=== PATIENT | female | born 1935 | race Caucasian/White ===

== ENCOUNTER 2016-06-06 07:39 | Emergency (ER) | payer MEDICARE, OTHER, MEDICAID ==
[2016-06-06 08:02] VITALS: BP 153/89
[2016-06-06] MEDS ORDERED: HYDROmorphone 0.5 MG/0.5 ML Syringe IM ONE ×2 (08:14→09:28)
--- NOTE | 2016-06-06 08:22 | EDM.PDOC ---
ED HPI Trauma - General Chief Complaint: Lower Extremity Injury/Pain Stated Complaint: RT KNEE PAIN Time Seen by Provider: 06/06/16 08:17 Source: Reports: Patient, Family History Limitations: Reports: No limitations - History of Present Illness INITIAL COMMENTS - FREE TEXT/NARRATIVE: Over the past 3 days she has developed marked swelling in the rt knee. She had alot of trouble getting out of bed. She is habing difficulty walking on the knee. Occurred When: last week Occurred Where: home Method of Injury: other (no known injury. ) Severity: moderate Pain/Injury Location: Reports: lower extremity, right Consciousness: Reports: no loss of consciousness Associated Symptoms: Reports: denies other symptoms Allergies/ADRs: Allergies No Known Allergies Allergy (Verified 06/06/16 07:51) Home Medications: Ambulatory Orders ALPRAZolam [Alprazolam] 06/06/16 Pantoprazole [Protonix] 06/06/16 Potassium Chloride 06/06/16 Past Medical History Musculoskeletal History: Reports: Osteoarthritis, Osteoporosis - Past Surgical History GI Surgical History: Reports: Small bowel Musculoskeletal Surgical History: Reports: Knee replacement, Shoulder surgery Social & Family History - Tobacco Use Smoking Status *Q: Never Smoker Review of Systems - Review of Systems Review Of Systems: See Below Constitutional: Reports: no symptoms Eyes: Reports: no symptoms Ears: Reports: no symptoms Nose: Reports: no symptoms Mouth/Throat: Reports: no symptoms Respiratory: Reports: no symptoms Cardiovascular: Reports: no symptoms GI/Abdominal: Reports: No symptoms Genitourinary: Reports: no symptoms Musculoskeletal: Reports: other (pain in rt knee. ) Skin: Reports: no symptoms Neurological: Reports: no symptoms Trauma Exam - Physical Exam Exam: See Below Text/Narrative:: Pt arrived with pain oin the rt knee with considerable swelling. She did not fall or injure the knee. d Exam Limited By: No limitations General Appearance: Reports: alert, moderate distress Head: Reports: atraumatic Eyes: bilateral eye: EOMI, normal inspection, PERRL Ears: Reports: normal TMs Nose: Reports: normal inspection Throat/Mouth: Reports: Normal inspection Neck: Reports: non-tender Respiratory Exam: Reports: no respiratory distress Cardiovascular: Reports: regular rate, rhythm Extremities: Reports: other ( rt knee is swollen ans painful. Pt has fluid in the joint. She is having alot of difficulty bending and extending the knee. ) Course - Vital Signs Last Recorded V/S: Last Vital Signs Temp 36.3 C 06/06/16 08:01 Pulse 92 06/06/16 08:01 Resp 14 06/06/16 08:01 BP 153/89 H 06/06/16 08:01 Pulse Ox 95 06/06/16 08:01 - Orders/Labs/Meds Orders: Active Orders 24 hr Category Date Time Status Knee Min 4V Rt [CR] Stat Exams 06/06/16 08:15 Taken CULTURE BODY FLUID + SMEAR [RM] Stat Lab 06/06/16 09:43 Results Labs: Laboratory Tests 06/06/16 Range/Units 09:43 Fluid Type Synovial fluid Fluid WBC 58701 /ul Fluid RBC 924328 /ul Fluid Diff Comment Fluid Mononuclear Cell 5 % Fl Polymorphonucl Cell 95 % Meds: Medications Discontinued Medications Generic Name Dose Route Start Last Admin Trade Name Freq PRN Reason Stop Dose Admin Acetaminophen/Hydrocodone Bitart 1 tab 06/06/16 09:46 06/06/16 10:57 [place] 325-5 Mg PO 06/06/16 09:47 1 tab ONETIME ONE Administration Hydromorphone HCl 0.5 mg 06/06/16 08:14 06/06/16 08:19 Dilaudid IM 06/06/16 08:15 0.5 mg ONETIME ONE Administration Hydromorphone HCl 0.5 mg 06/06/16 09:28 Dilaudid IM 06/06/16 09:29 ONETIME ONE Lidocaine HCl 20 ml 06/06/16 08:52 06/06/16 09:27 Xylocaine 1% INJECT 06/06/16 08:53 20 ml ONETIME ONE Administration Methylprednisolone Acetate 60 mg 06/06/16 08:52 06/06/16 09:27 Depo-Medrol IM 06/06/16 08:53 60 mg ONETIME ONE Administration - Re-Assessments/Exams Free Text/Narrative Re-Assessment/Exam: 06/06/16 09:25 pt had an xray which showed marked degenerative changes The knee was tapped and this showed 100cc of blood tinged fluid. After drainage the knee felt much softer. depomedrol 60 mg was injected into the knee. On the xray the bone does look somwhat moth eaten but this is probably just osteoporosis. 06/06/16 09:28 pt has an appt with Reshma Valenzuela on wed and she needs to keep that appt. 06/06/16 10:18 06/06/16 11:10 It was noted on the cell count that alot of wbcs were eosinophils. Departure - Departure Time of Disposition: :29 Disposition: Home, Self-Care 01 Condition: fair Clinical Impression: Acute joint effusion, Degenerative arthritis of right knee Instructions: Knee Effusion, [id number], Knee Arthrocentesis, Care After Referrals: Ralph Broderick MD [Primary Care Provider] - Forms: ED Department Discharge Care Plan Goals: When the pt sees Reshma the culture should be done. keep appt with Reshma Valenzuela on wed. cool packs to the joint today and then moist warm packs to the knee. Keep the patricio wrap on the knee today but take it on and off Use a walker for ambulation. - My Orders Last 24 Hours: My Active Orders 06/06/16 08:15 Knee Min 4V Rt [CR] Stat 06/06/16 09:43 CULTURE BODY FLUID + SMEAR [RM] Stat - Assessment/Plan Last 24 Hours: My Active Orders 06/06/16 08:15 Knee Min 4V Rt [CR] Stat 06/06/16 09:43 CULTURE BODY FLUID + SMEAR [RM] Stat
[2016-06-06] MEDS ORDERED: Lidocaine 1% 20 ML MDV INJECT ONE (08:52)
[2016-06-06] MEDS ORDERED: methylPREDNISolone Acetate 40 MG/ML SDV IM ONE (08:52)
[2016-06-06] MEDS ORDERED: Acetaminophen/HYDROcodone 325-5 MG Tab PO ONE (09:46)
--- NOTE | 2016-06-08 10:19 | CR ---
Right knee Comparison: None. Findings: There is severe joint space loss throughout the knee. There is irregularity of the articul ar surfaces. Marginal osteophytes are formed. There is remodeling at the poles of the patella. There is a large joint effusion. Impression: 1. Severe tricompartmental osteoarthritis. 2. Large joint effusion.
== END 2016-06-06 10:58 | disposition home or self-care (01) ==
LOC: JP.ED 07:39
DX: M25.461 Effusion, right knee (principal); M17.11 Unilateral primary osteoarthritis, right knee; Z79.899 Other long term (current) drug therapy; Z98.890 Other specified postprocedural states
CPT/HCPCS: 73564; 87070; 87205; 89050; 96372; 99284; A9270; J1030; J1170; 20610

== ENCOUNTER 2018-04-10 13:38 | Emergency (ER) | payer MEDICAID, MEDICARE, OTHER ==
[2018-04-10 14:26] VITALS: BP 194/117
[2018-04-10] MEDS ORDERED: ALPRAZolam 0.25 MG Tab PO ONE (14:51)
--- NOTE | 2018-04-10 15:33 | EDM.PDOC ---
ED HPI GENERAL MEDICAL PROBLEM - General Chief Complaint: Laceration Stated Complaint: FELL AND CUT HEAD Time Seen by Provider: 04/10/18 15:28 Source of Information: Reports: Patient History Limitations: Reports: No Limitations - History of Present Illness INITIAL COMMENTS - FREE TEXT/NARRATIVE: pt fell on the street shortly before arrival. She hit her rt knee which has severe arthritis and she hit the lateral portion of her hand. She contused her rt eye area which is gigi bruised. She has a 1/8 inch laceration in the upper lid area. Onset: Today, Sudden Duration: Hour(s): Right Face Pain Score (Numeric/FACES): 3 - Related Data Allergies Allergy/AdvReac Type Severity Reaction Status Date / Time No Known Allergies Allergy Verified 04/10/18 14:17 Home Meds: Home Meds ALPRAZolam [Alprazolam] 0.25 tab PO TID PRN 06/06/16 [History] Pantoprazole [ProTONIX] 1 tab PO DAILY 06/06/16 [History] Potassium Chloride 20 meq PO DAILY 06/06/16 [History] Cholecalciferol (Vitamin D3) [Vitamin D3] 1,000 unit PO DAILY 04/10/18 [History] Past Medical History HEENT History: Reports: Epistaxis, Impaired Vision Cardiovascular History: Reports: High Cholesterol, Hypertension Musculoskeletal History: Reports: Osteoarthritis, Osteoporosis Psychiatric History: Reports: Depression Hematologic History: Reports: Blood Transfusion(s) - Infectious Disease History Infectious Disease History: Reports: Chicken Pox, Measles, Mumps - Past Surgical History GI Surgical History: Reports: Cholecystectomy, Colonoscopy, Small Bowel Musculoskeletal Surgical History: Reports: Knee Replacement, Shoulder Surgery Social & Family History - Tobacco Use Smoking Status *Q: Never Smoker Second Hand Smoke Exposure: No - Caffeine Use Caffeine Use: Reports: Coffee - Alcohol Use Days Per Week of Alcohol Use: 0 - Recreational Drug Use Recreational Drug Use: No ED ROS GENERAL - Review of Systems Review Of Systems: See Below Constitutional: Reports: No Symptoms HEENT: Reports: No Symptoms Respiratory: Reports: No Symptoms Cardiovascular: Reports: No Symptoms, Palpitations GI/Abdominal: Reports: No Symptoms : Reports: No Symptoms Musculoskeletal: Reports: Other (pt has a contusion to rt knee and rt hand. ) Skin: Reports: No Symptoms ED EXAM, SKIN/RASH Exam: See Below Text/Narrative:: pt arrived with a painful rt knee and rt hand. She has a 1/8inch laceration in the area above the rt eye. She has alot of bruising above the rt eye. Exam Limited By: No Limitations General Appearance: Alert, Moderate Distress Ears: Normal TMs Nose: Normal Inspection Throat/Mouth: Normal Inspection Head: Other (pt has marked bruising above the rt eye. She has a 1/8 inch laceration in the area of bruising. Shs a abrasion on the rt hand, Her rt bobby is bruised and is quite stiff. ) Neck: Normal Inspection Respiratory/Chest: No Respiratory Distress Cardiovascular: Regular Rate, Rhythm GI/Abdominal: Soft, Non-Tender (Female) Exam: Deferred Rectal (Female) Exam: Deferred Back Exam: Normal Inspection Extremities: Other ( rt knee is swollen and bruised and she is having trouble bending the knee. Her rt hand is mildly tender on the lateral aspect. ) Course - Vital Signs Last Recorded V/S: Last Vital Signs Temp 35.5 C 04/10/18 14:27 Pulse 96 04/10/18 14:27 Resp 16 04/10/18 14:27 BP 194/117 H 04/10/18 14:27 Pulse Ox 100 04/10/18 14:27 - Orders/Labs/Meds Meds: Medications Discontinued Medications Generic Name Dose Route Start Last Admin Trade Name [place] PRN Reason Stop Dose Admin Hydrocodone Bitart/Acetaminophen 1 tab 04/10/18 17:05 04/10/18 17:14 [place] 325-5 Mg PO 04/10/18 17:06 1 tab ONETIME ONE Administration Alprazolam 0.25 mg 04/10/18 14:51 04/10/18 14:57 Xanax PO 04/10/18 14:52 0.25 mg ONETIME ONE Administration Bacitracin 1 dose 04/10/18 16:53 04/10/18 17:01 Bacitracin Oint 1 Gm TOP 04/10/18 16:54 1 dose ONETIME ONE Administration Diphtheria/Tetanus/Acell Pertussis 0.5 ml 04/10/18 16:11 04/10/18 16:24 Adacel IM 04/10/18 16:12 0.5 ml .ONCE ONE Administration Lidocaine HCl 5 ml 04/10/18 15:27 04/10/18 16:23 Xylocaine-Mpf 1% INJECT 04/10/18 15:28 5 ml ONETIME ONE Administration - Re-Assessments/Exams Free Text/Narrative Re-Assessment/Exam: 04/10/18 16:59 The 1/8 inch laceration above the rt eye was cleansed and infiltrated with lidocaine. It was closed with 6-0 prolene. 04/10/18 17:03 xray of rt hand may show a small chip at the knuckle level. 04/12/18 18:39 pt was given a dtap. Departure - Departure Time of Disposition: 17:00 Disposition: Home, Self-Care 01 Condition: Fair Clinical Impression: Contusion of right knee, Contusion of right hand, Laceration, Ecchymosis of right eye - Discharge Information Instructions: Contusion, Laceration Care, Adult Referrals: Ralph Broderick MD [Primary Care Provider] - Forms: ED Department Discharge Care Plan Goals: cool pack to rt eye, suture removal in 6 days, appt with Dr Broderick in 6 days, cool pack to rt knee and rt hand. norco 5/325 q6h prn for pain
[2018-04-10] MEDS ORDERED: Diphtheria,Pertussis(Acell),Tetanus Vaccine 0.5 ML SDV IM ONE (16:11)
[2018-04-10] MEDS ORDERED: Bacitracin Oint 1 GM U/D Packet TOP ONE (16:53)
[2018-04-10] MEDS ORDERED: Acetaminophen/HYDROcodone 325-5 MG Tab PO ONE (17:05)
--- NOTE | 2018-04-11 13:00 | CR ---
Right hand There is diffuse demineralization. There is cortical irregularity at the base of the fifth metacarpal. The finding is concerning for a nondisplaced fracture. The remaining bones appear unremarkable. Impression: 1. Question fracture base of the fifth metacarpal. Recommend clinical correlation as to the site of pain.
--- NOTE | 2018-04-11 13:01 | CR ---
Right knee There is severe tricompartmental degenerative joint space loss. There is remodeling at the patellofemoral joint. Marginal osteophytes are formed. There are no findings of fracture. There is a large joint effusion. Impression: 1. Advanced osteoarthritis. 2. Large joint effusion.
== END 2018-04-10 17:24 | disposition home or self-care (01) ==
LOC: JP.ED 13:38
DX: S01.81XA Laceration without foreign body of other part of head, initial encounter (principal); I10 Essential (primary) hypertension; W18.00XA Striking against unspecified object with subsequent fall, initial encounter; Z79.899 Other long term (current) drug therapy; Z23 Encounter for immunization
CPT/HCPCS: 12011; 73130; 73564; 90471; 90715; 99283; 99284; A9270